=== PATIENT | male | born 1955 | race Hispanic/Latino ===

== ENCOUNTER 2018-10-08 11:17 | Outpatient (CLI) | payer BC ==
--- NOTE | 2018-10-08 13:37 | RAD ---
RADIOGRAPH RIGHT KNEE THREE VIEWS: DATE: 10-08-18 HISTORY: 63-year-old male with right knee pain. FINDINGS: There is an approximately 3.5 x 2.5 cm eggshell calcification in the soft tissues directly posterior to the distal femoral metaphysis as seen on the lateral view. No large joint effusion or edema in Hof fa's fat pad. No high grade joint space narrowing. Small osteophytes at the patellofemoral compartmen t, but not at the medial and lateral compartments. No fracture or destructive osseous lesion. No frac ture. IMPRESSION: 1. 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 Possibilities include popliteal arter y aneurysm and calcified whaley's cyst. 2. No major osseous pathology. POS: [facility]
--- NOTE | 2018-10-08 13:44 | RAD ---
LEFT KNEE 3 VIEWS: HISTORY: Pain. COMPARISON: None. FINDINGS: There is vacuum phenomenon at the medial compartment of the right knee. There is mild medial compart ment joint space narrowing with subcortical sclerosis of the medial femoral condyle. No significant joint effusion. IMPRESSION: Degenerative changes of the medial compartment with vacuum phenomenon as well as subcortical sclerosi s of the medial femoral condyle. POS: [facility]
== END 2018-10-08 11:18 | disposition home or self-care (01) ==
LOC: BICRAD 11:17
PROVIDERS: ATTEND Family Medicine
DX: M25.561 Pain in right knee (principal); M25.562 Pain in left knee; M89.8X6 Other specified disorders of bone, lower leg; M17.12 Unilateral primary osteoarthritis, left knee

== ENCOUNTER 2019-05-01 11:52 | Outpatient (CLI) | payer OTHER ==
[2019-05-01 12:40] LABS: Estimated GFR-MDRD - POC Greater than 90
--- NOTE | 2019-05-01 14:44 | MRI ---
MRI OF THE RIGHT KNEE WITH AND WITHOUT CONTRAST: Date: 05/01/19 INDICATION: History of contusion of the right knee and thigh. COMPARISON: Right knee radiograph dated 10/08/18 from [facility] in [place], [place]. FINDINGS: 18 mL of MultiHance was utilized for the examination. There are small to moderate marginal osteophytes affecting the major compartments of the right knee. There is a small subchondral insufficiency fracture involving the medial tibial plateau best seen on image 14 of series 5 without articular surface depression. There are areas of subchondral edema invol ving the tibial plateau and medial femoral condyle. There are areas of moderate to severe diffuse cho ndral thinning involving the articular surface of the medial femoral tibial joint compartment. There is mild diffuse chondrosis involving the lateral femoral tibial compartment. There is mild diffuse th inning involving the patellofemoral compartment. There is a complex multidirectional tear involving the body, posterior junction, and posterior horn o f the medial meniscus with partial extrusion of the meniscus. There is a small radially oriented tear involving the central margin of the posterior body and posterior junction of the medial meniscus. The ACL and PCL are intact. The MCL is intact. The fibular collateral ligament and lateral collateral ligament complex is intact. The extensor mechanism is intact. There are multiple intraarticular bodies seen along the posterior medial and posterior aspects of the right knee joint, some of which are partially calcified and likely correspond to the lamellated calc ifications seen posteriorly within the right knee on the comparison radiograph dated 10/08/18. There is some mild synovial enhancement noted adjacent to the intraarticular bodies on the postcontra st images. There is no evidence of a popliteal artery aneurysm. IMPRESSION: 1. 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 This can be primary and secondary, and with the presence of moderate osteoarthrosis of the right kn ee, secondary osteochondromatosis is favored. 2. Complex multidirectional tear involving the body and posterior horn of the medial meniscus with p artial medial extrusion. 3. Partial thickness vertically oriented radial tear involving the posterior body and posterior junc tion of the lateral meniscus. 4. The ACL, PCL, MCL, and LCLC are intact. POS: [facility]
== END 2019-05-01 11:53 | disposition home or self-care (01) ==
LOC: SCSMRI 11:52
PROVIDERS: ATTEND Family Medicine
DX: S83.8X1D Sprain of other specified parts of right knee, subsequent encounter (principal); S70.11XD Contusion of right thigh, subsequent encounter; S83.231D Complex tear of medial meniscus, current injury, right knee, subsequent encounter; S83.281D Other tear of lateral meniscus, current injury, right knee, subsequent encounter; M17.11 Unilateral primary osteoarthritis, right knee
CPT/HCPCS: 82565